=== PATIENT | female | born 1975 | race Caucasian/White ===

== ENCOUNTER 2017-07-19 23:02 | Emergency (ER) | payer BC ==
[2017-07-19 23:02] VITALS: BP 138/83
--- NOTE | 2017-07-19 23:57 | ED.ADGEN ---
Adult General Chief Complaint Chief Complaint knee pain [facility] HPI Patient is a 42 y/o female who presents with right knee pain after body motion caused pain. she was walking to car when pain started. she heard a pop then "pain that was worse than labor pain". no fall. she has been working out a lot and working a lot. now she has pain in knee radiating to ankle and hip. she has degenerative disk disease that causes pain radiating to right leg. usually she goes to chiropractor and they fix it Review of Systems Review of Systems Constitutional: Denies fever or chills [] Eyes: Denies change in visual acuity, redness, or eye pain [] HENT: Denies nasal congestion or sore throat [] Respiratory: Denies cough or shortness of breath [] Cardiovascular: No additional information not addressed in HPI [] GI: Denies abdominal pain, nausea, vomiting, bloody stools or diarrhea [] : Denies dysuria or hematuria [] Musculoskeletal: +back and joint pain Integument: Denies rash or skin lesions [] Neurologic: Denies headache, focal weakness or sensory changes [] Endocrine: Denies polyuria or polydipsia [] All other systems were reviewed and found to be within normal limits, except as documented in this note. Allergies Allergies Allergies Coded Allergies Type Severity Reaction Last Updated Verified erythromycin base Allergy Intermediate SVT 07/19/17 Yes Physical Exam Physical Exam Constitutional: Well developed, well nourished, no acute distress, non-toxic appearance. [] HENT: Normocephalic, atraumatic, bilateral external ears normal, oropharynx moist, no oral exudates, nose normal. [] Eyes: PERRLA, EOMI, conjunctiva normal, no discharge. [] Neck: Normal range of motion, no tenderness, supple, no stridor. [] Cardiovascular:Heart rate regular rhythm, no murmur [] Lungs & Thorax: Bilateral breath sounds clear to auscultation [] Abdomen: Bowel sounds normal, soft, no tenderness, no masses, no pulsatile masses. [] Skin: Warm, dry, no erythema, no rash. [] Back: No tenderness, no CVA tenderness. [] Extremities: tender posterior knee. slight swelling of right knee. normal patellar reflex and equal to left patellar reflex. normal achilles reflexes bilat. no erythema or ecchymosis. no crepitus on flex/ext. no pain with flex/ ext. no laxity on ant/post drawer or medial/lat drawer Neurologic: Alert and oriented X 3, normal motor function, normal sensory function, no focal deficits noted. [] Psychologic: Affect normal, judgement normal, mood normal. [] Current Patient Data Vital Signs Vital Signs Date Time Temp Pulse Resp B/P (MAP) Pulse Ox O2 Delivery O2 Flow Rate FiO2 07/19/17 23:02 98.3 80 16 98 Room Air EKG EKG [] Radiology/Procedures Radiology/Procedures knee xray with small effusion. no bony abnormality[] Course & Med Decision Making Course & Med Decision Making Pertinent Labs and Imaging studies reviewed. (See chart for details) pt will try to decrease use of RLE until sx resolve. she will rest and ice. no working out until sx free. she is to f/u with pcp for further imaging [] Final Impression Final Impression knee sprain[] Problems: Dragon Disclaimer Dragon Disclaimer This electronic medical record was generated, in whole or in part, using a voice recognition dictation system. Departure Time of Disposition: 23:56 Disposition: HOME, SELF-CARE Diagnosis: knee injury Condition: STABLE Patient Instructions: Combined Knee Ligament Sprain-SportsMed Additional Instructions: call your doctor sunday for recheck and further testing. return if symptoms worsen. decrease activity for the weekend. Ice and elevate leg. no working out until symptoms resolved. fernanda wrap for compression. tylenol and ibuprofen for pain. TAL RODRIGUEZ MD Jul 19, 2017 23:57
--- NOTE | 2017-07-20 08:04 | RAD ---
EXAM: Right knee, 3 views HISTORY: Right knee pain. Infiltrate. COMPARISON: None. FINDINGS: No fractures are identified. Joint spaces are maintained. Alignment is normal. There is a small joint effusion. IMPRESSION: 1. Small joint effusion.
== END 2017-07-20 00:06 | disposition home or self-care (01) ==
LOC: ER 23:02
DX: S89.91XA Unspecified injury of right lower leg, initial encounter (principal); Z88.1 Allergy status to other antibiotic agents; X58.XXXA Exposure to other specified factors, initial encounter; Y93.01 Activity, walking, marching and hiking; Y99.8 Other external cause status; Y92.89 Other specified places as the place of occurrence of the external cause
CPT/HCPCS: 73562; 99284

== ENCOUNTER 2017-11-14 23:44 | Emergency (ER) | payer BC ==
[2017-11-14 23:50] VITALS: BP 143/98
[2017-11-15] MEDS ORDERED: predniSONE 20 MG TABLET PO ONE (00:15)
[2017-11-15] MEDS ORDERED: IPRATRPIUM/ALBUTEROL 0.5/2.5MG 3 ML NEBU. NEB ONE (00:15)
[2017-11-15] MEDS ORDERED: IPRATRPIUM/ALBUTEROL 0.5/2.5MG 3 ML NEBU. ONE (00:22)
[2017-11-15] MEDS ORDERED: predniSONE 20 MG TABLET ONE (00:46)
[2017-11-15] MEDS ORDERED: PRED50TA PO (01:17)
[2017-11-15] MEDS ORDERED: ALBU8.5H8 INH (01:17)
--- NOTE | 2017-11-15 01:17 | PHYS DOC ---
Past History Past Medical History: Other Past Surgical History: Tubal ligation Alcohol Use: None Drug Use: None Adult General Chief Complaint Chief Complaint: COUGH HPI HPI Patient is a 42-year-old female who presents here today complaining of cough congestion and shortness of breath. Patient reports she does have a history of asthma in the past. Patient reports it's exercise-induced is usually uses albuterol with improvement. Patient reports yellow-green sputum production. Patient has any fevers shakes chills nausea vomiting or diarrhea. She is complaining of a sore throat. Patient denies any ear pain. Patient portion to tolerate by mouth as well. Review of systems: Constitutional: Denies fever or chills Eyes: Denies change in visual acuity, redness, or eye pain HENT: Positive for congestion All other review systems are negative except as documented in the history of present illness portion. Physical exam: Constitutional: Well developed, well nourished, no acute distress, non-toxic appearance. HENT: Normocephalic, atraumatic, bilateral external ears normal, nose normal. Eyes: EOMI, conjunctiva normal, no discharge. Neck: Normal range of motion, no tenderness, supple, no stridor. Cardiovascular:Heart rate regular rhythm Lungs & Thorax: Bilateral breath sounds clear to auscultation no respiratory distress Abdomen: Bowel sounds normal, soft, no tenderness, no masses, no pulsatile masses. Skin: Warm, dry, no erythema, no rash. Back: No tenderness, no CVA tenderness. Extremities: No tenderness, no cyanosis, no clubbing, ROM intact, no edema. Neurologic: Alert and oriented X 3, normal motor function, normal sensory function, no focal deficits noted. Psychologic: Affect normal, judgement normal, mood normal. Chest x-ray reveals normal heart no infiltrates or effusions. Assessment and plan 42-year-old female who presents here today complaining of shortness of breath. Patient reports she is unclear whether not this is viral versus bacterial versus allergic bronchitis. Patient will be given albuterol treatment in the ED , Atrovent treatment in the ED, redness under the ED. Chest x-ray was normal. Patient's reports she feels significant improved after the breathing treatment in the ED. Patient's presentation is most consistent with allergic bronchitis/ rhinitis. Patient be discharged home with prednisone and albuterol MDI. Current Medications Current Medications Current Medications Medications (Trade) Dose Ordered Sig/Gabriella Start Time Stop Time Status Last Admin Dose Admin Albuterol/ Ipratropium (Duoneb) 3 ml 1X ONCE 11/15/17 00:15 11/15/17 00:16 UNV 11/15/17 00:37 3 ML Prednisone (Prednisone) 40 mg 1X ONCE 11/15/17 00:15 11/15/17 00:16 UNV 11/15/17 00:50 40 MG Allergies Allergies Allergies Coded Allergies Type Severity Reaction Last Updated Verified erythromycin base Allergy Intermediate SVT 07/19/17 Yes Current Patient Data Vital Signs Vital Signs Date Time Temp Pulse Resp B/P (MAP) Pulse Ox O2 Delivery O2 Flow Rate FiO2 11/15/17 00:25 98 Room Air 11/14/17 23:50 98.9 88 16 EKG EKG [] Radiology/Procedures Radiology/Procedures [] Course & Med Decision Making Course & Med Decision Making Pertinent Labs and Imaging studies reviewed. (See chart for details) [] Dragon Disclaimer Dragon Disclaimer This electronic medical record was generated, in whole or in part, using a voice recognition dictation system. Departure Departure: Impression: Primary Impression: Bronchitis Disposition: 01 HOME, SELF-CARE Condition: IMPROVED Referrals: TJ PARRA (PCP) Patient Instructions: Bronchitis Scripts Albuterol Sulfate (PROAIR HFA INHALER) 8.5 Gm Hfa.aer.ad 1 PUFF INH PRN Q6HRS Y for SHORTNESS OF BREATH, #1 INHALER 0 Refills Prov: JEREMIE THOMPSON MD 11/15/17 Prednisone (PREDNISONE) 50 Mg Tablet 1 TAB PO DAILY, #5 TAB Prov: JEREMIE THOMPSON MD 11/15/17 JEREMIE THOMPSON MD Nov 15, 2017 01:17
--- NOTE | 2017-11-15 07:13 | RAD ---
Chest, 2 views, 11/15/2017: History: Shortness of breath, cough The heart size and pulmonary vascularity are normal. No pulmonary infiltrate is seen. There is no evidence of pleural fluid. There is a mild thoracic scoliosis. IMPRESSION: No acute cardiopulmonary abnormality is detected.
== END 2017-11-15 01:21 | disposition home or self-care (01) ==
LOC: ER 23:44
DX: J40 Bronchitis, not specified as acute or chronic (principal); J45.909 Unspecified asthma, uncomplicated; Z88.1 Allergy status to other antibiotic agents
CPT/HCPCS: 71046; 94640; 99284; J7512; J7620